=== PATIENT | female | born 1980 | race Caucasian/White ===

== ENCOUNTER 2020-10-26 14:36 | Emergency (ER) | payer OTHER ==
[2020-10-26 17:18] LABS: BASOPHIL 0.3 % (0-2); EOSINOPHIL 2.7 % (0-5); HGB 15.1 g/dl (12.5-16.0); LYMPHOCYTE 15.9 % (15-48); MCH 29.4 pg (25.0-31.0); MCHC 32.8 g/dL (32.0-36.0); MCV 89.5 fL (78.0-100.0); MONOCYTE 8.7 % (0-12); MPV 9.7 fL (6.0-9.5); NEUTROPHIL 71.7 % (41-80); NRBC 0; PLT 308 K/uL (150-400); RBC 5.14 M/uL (4.20-5.40); RDW 12.9 % (11.5-14.0); WBC 13.4 K/uL (4.0-10.5)
[2020-10-26 17:28] LABS: BILIRUBIN - TOTAL 0.5 mg/dL (0.2-1.0); BUN/CREAT RATIO (CALC) 6.5 RATIO; CREATININE 0.62 mg/dL (0.51-0.95); GLOBULIN (CALCULATION) 3.7 g/dL; POTASSIUM 3.8 mmol/L (3.5-5.1); TOTAL PROTEIN 7.7 g/dL (6.4-8.2)
== END 2020-10-26 18:27 | disposition home or self-care (01) ==
LOC: FER 14:36
PROVIDERS: Emergency Medicine
DX: S02.832A Fracture of medial orbital wall, left side, initial encounter for closed fracture (principal); F17.200 Nicotine dependence, unspecified, uncomplicated; Y04.2XXA Assault by strike against or bumped into by another person, initial encounter
CPT/HCPCS: 36415; 70450; 70486; 80053; 85025